=== PATIENT | male | born 1970 | race Two or more races ===

== ENCOUNTER 2019-03-17 09:30 | Emergency (ER) | payer MEDICAID, OTHER ==
[~2019-03-17] VITALS: Ht 172.7 cm; Wt 104.3 kg
[2019-03-17 09:40] VITALS: BP 150/91
[2019-03-17] MEDS ORDERED: METHOCARBAMOL 500 MG TAB PO ONE (10:30)
[2019-03-17] MEDS ORDERED: IBUPROFEN 800 MG TAB PO ONE (10:30)
== END 2019-03-17 11:42 | disposition home or self-care (01) ==
LOC: ER 09:30 → EDBD 09:30 → ER 11:41
DX: M54.5 Low back pain (principal); V49.9XXA Car occupant (driver) (passenger) injured in unspecified traffic accident, initial encounter; Y93.89 Activity, other specified; Y92.89 Other specified places as the place of occurrence of the external cause; Y99.8 Other external cause status
CPT/HCPCS: 72100

== ENCOUNTER 2022-12-07 17:29 | Emergency (ER) | payer MEDICAID, OTHER ==
[~2022-12-07] VITALS: Ht 172.7 cm; Wt 86.0 kg
[2022-12-07 18:57] LABS: Urine Bacteria NONE SEEN /hpf (None Seen); Urine Blood Negative /uL (Negative); Urine Specific Gravity 1.043 (1.001-1.035); Urine WBC 1 /hpf (0 - 3)
[2022-12-07 19:25] LABS: Basophils # (auto) 0 10 ^3/uL (0-0.2); Basophils % (auto) 0.6 % (0.0-2.0); Eosinophils # (auto) 0.1 10 ^3/uL (0-0.8); Eosinophils % (auto) 1.5 % (0.0-7.0); Hematocrit 50.6 % (41.0-53.0); Hemoglobin 17.5 g/dL (13.5-17.5); Lymphocytes # (auto) 2.5 10 ^3/uL (0.4-5.4); Lymphocytes % (auto) 35.3 % (10.0-50.0); Mean Corpuscular Hemoglobin 31.4 pg (28.0-32.0); Mean Corpuscular Hgb Conc. 34.5 g/dL (32.0-36.0); Monocytes # (auto) 0.4 10 ^3/uL (0-1.3); Monocytes % (auto) 5.6 % (0.0-12.0); Neutrophils # (auto) 4.1 10 ^3/uL (1.6-8.6); Nucleated Red Blood Cells % 0.1 %; Red Blood Cells 5.56 10^6/uL (4.5-5.90); Red Cell Distribution Width 13.5 % (11.8-14.3); White Blood Cell 7.2 10^3/uL (4.4-10.8)
[2022-12-07 19:50] LABS: Calcium 8.9 mg/dL (8.5-10.1); Potassium 4.4 mmol/L (3.5-5.1)
[2022-12-07 19:56] LABS: Bilirubin, Total 0.6 mg/dL (0.2-1.0); Total Protein 7.8 g/dL (6.4-8.2)
[2022-12-07] MEDS ORDERED: METF-370 PO (20:59)
[2022-12-07 22:26] VITALS: BP 145/90
== END 2022-12-07 22:26 | disposition home or self-care (01) ==
LOC: ER 17:29
DX: R73.9 Hyperglycemia, unspecified (principal); R82.4 Acetonuria
CPT/HCPCS: 36415; 36600; 80053; 81001; 82805; 83605; 83690; 85025

== ENCOUNTER 2024-11-04 09:33 | Emergency (ER) | payer MEDICAID, OTHER ==
[~2024-11-04] VITALS: Ht 172.7 cm; Wt 78.3 kg
[~2024-11-04 09:33] MED LIST: METF-370 PO
--- NOTE | 2024-11-04 10:27 | DVH ---
EXAM: CT HEAD WITHOUT CONTRAST HISTORY: HEAD INJURY COMPARISON: None TECHNIQUE: Axial images of the head were obtained and reformatted in coronal and sagittal planes. All CT scans at this medical facility are performed using dose modulation techniques as appropriate t o a performed exam including the following: Automated exposure control was utilized; adjustment of th e MA and/or KV according to patient size; and use of iterative reconstruction technique. CT Dose: CTDI volume is 57 mGy. Dose-length product is 10 16 mGy*cm FINDINGS: There is no evidence of acute intracranial hemorrhage, mass, mass effect midline shift. There is no h ydrocephalus or extra-axial fluid collection. Schumacher-white matter differentiation is maintained. The visualized paranasal sinuses and mastoid air cells are clear. There is right anterior frontal sc alp hematoma. The calvarium is intact. IMPRESSION: 1. No acute intracranial process. 2. Right anterior frontal scalp hematoma. HS:Y
--- NOTE | 2024-11-04 10:39 | DVH ---
CLINICAL HISTORY: FALL INJURY COMPARISON: None TECHNIQUE: Axial CT images of the cervical spine were obtained without IV contrast. Coronal and sagit dheeraj reformatted images were obtained. All CT scans at this medical facility are performed using dose modulation techniques as appropriate to a performed exam including the following: Automated exposure control was utilized; adjustment of the MA and/or KV according to patient size; and use of iterative reconstruction technique. CTDIvol = 0.07, 23.47 mGy DLP = 750.44, 3.16 mGy-cm FINDINGS: Bones: Straightening of the normal cervical lordosis. No significant spondylolisthesis. Vertebral bod y heights are maintained. Posterior elements are intact. No acute fracture. Multilevel [id number] te disc space narrowing in the cervical spine with associated endplate sclerosis and endplate spurrin g. Paraspinal soft tissues: Prevertebral and paraspinal soft tissues are unremarkable. Other: No other significant findings. IMPRESSION: 1. No evidence of acute fracture or spondylolisthesis. 2. Straightening of the normal cervical lordosis, may be positional or due to muscle spasm. 3. Degenerative disc disease in the cervical spine as described above.
--- NOTE | 2024-11-04 12:57 | ED.PDOC ---
HPI (NEURO) HPI Comments 54 y.o male with PMHx of DM, presents to the ED for a chief complaint of dizziness associated with a headache x 1 day. Patient reports taking pain medication last night for headache, woke up with no pain but states today while feeding his dog outside, he bent down to get the dog food, became dizzy and fell face forward onto metal fence. Patient presents with 1.3cm laceration to the right side of his forehead with clean edges and no active bleeding. Patient denied any LOC, head pain at this time, nausea, vomiting, chest pain or SOB. Chief Complaint: Dizziness Time Seen by MD: 12:43 Primary Care Provider: NONE Reviewed Notes: Nurses Notes, Medications, Allergies Information Source: Patient Mode of Arrival: Ambulatory Severity: Moderate Dizziness/Weakness Severity: Unable to do activities Headache Severity: Moderate Timing: Days (1) Duration: Since onset Headache Quality: Aching Headache Location: Generalized Onset: At rest Circumstances: Spontaneous Symptoms: Near syncope History of: DM Modifying factors: Nothing Associated Signs and Symptoms: Headache, Other Past Medical History PAST MEDICAL HISTORY: DM, Denies Past Medical History (Other): chronic back pain Surgical History: Denies all surgeries Family History Family History: Reviewed,noncontributory to illness Social History Smoker: Non-Smoker Alcohol: Denies ETOH Use Drugs: Denies Drug Use Lives In: Home Constitutional: denies: chills, diaphoresis, fatigue, fever, malaise, sweats, weakness, others EENTM: denies: blurred vision, double vision, ear bleeding, ear discharge, ear drainage, ear pain, ear ringing, eye pain, eye redness, hearing loss, mouth pain, mouth swelling, nasal discharge, nose bleeding, nose congestion, nose pain, photophobia, tearing, throat pain, throat swelling, voice changes, others Respiratory: denies: cough, hemoptysis, orthopnea, SOB at rest, shortness of breath, SOB with excertion, stridor, wheezing, others Cardiovascular: denies: chest pain, dizzy spells, diaphoresis, Dyspnea on exertion, edema, irregular heart beat, left arm pain, lightheadedness, palpitations, PND, syncope, others Gastrointestinal: denies: abdomen distended, abdominal pain, blood streaked bowels, constipated, diarrhea, dysphagia, difficulty swallowing, hematemesis, melena, nausea, poor appetite, poor fluid intake, rectal bleeding, rectal pain, vomiting, others Genitourinary: denies: burning, dysuria, flank pain, frequency, hematuria, incontinence, penile discharge, penile sore, pain, testicle pain, testicle swelling, urgency, others Neurological: reports: dizziness, headache; denies: fainting, left sided numbness, left sided weakness, numbness, paresthesia, pre-existing deficit, right sided numbness, right sided weakness, seizure, speech problems, tingling, tremors, weakness, others Musculoskeletal: denies: back pain, gout, joint pain, joint swelling, muscle pain, muscle stiffness, neck pain, others Integumetry: reports: laceration; denies: bruises, change in color, change in hair/nails, dryness, lesions, lumps, rash, wounds, others Allergic/Immunocompromised: denies: Difficulty Healing, Frequent Infections, Hives, Itching, others Hematologic/Lymphatic: denies: anemia, blood clots, easy bleeding, easy bruising, swollen glands, others Endocrine: denies: excessive hunger, excessive sweating, excessive thirst, excessive urination, flushing, intolerance to cold, intolerance to heat, unexplained weight gain, unexplained weight loss, others Psychiatric: denies: anxiety, bipolar disorder, depression, hopeless, panic disorder, schizophrenia, sleepless, suicidal, others All Other Systems: Reviewed and Negative Physical Exam General Appearance: No Apparent Distress, Normal HEENT: Normal ENT Inspection, Pharynx Normal, TMs Normal Neck: Full Range of Motion, Non-Tender, Normal, Normal Inspection Respiratory: Chest Non-Tender, Lungs Clear, No Accessory Muscle Use, No Respiratory Distress, Normal Breath Sounds Cardiovascular: No Edema, No JVD, No Murmur, No Gallop, Normal Peripheral Pulses, Regular Rate/Rhythm Breast Exam: Deferred Gastrointestinal: No Organomegaly, Non Tender, No Pulsatile Mass, Normal Bowel Sounds, Soft Genitalia: Deferred Pelvic: Deferred Rectal: Deferred Extremities: No calf tenderness, Normal capillary refill, Normal inspection, Normal range of motion, Non-tender, No pedal edema Musculoskeletal : Apperance: Normal Neurologic: Alert, investment specialist II-XII nml as Tested, No Motor Deficits, Normal Affect, Normal Mood, No Sensory Deficits Cerebellar Function: Normal Reflexes: Normal Skin: Lacerations (1.3cm laceration with clean edges ) Lymphatic: No Adenopathy Was a procedure done? Was a procedure done?: Yes Sedation Sedation?: No Laceration Repair : Location Right-sided forehead Length 1.3 Anesthetic: Nothing Laceration Repair: Dermabond Informed consent obtained: Yes Risks, benefits, and alternati: Yes Differential Diagnosis (SZ) General Weakness: Dehydration, Vertigo: central, Vertigo: peripheral Headache: Cluster, Migraine X-Ray, Labs, Meds, VS Vital Signs Date Time Temp Pulse Resp B/P (MAP) Pulse Ox O2 Delivery O2 Flow Rate FiO2 11/04/24 12:58 97.7 62 16 119/83 (95) 99 97.7 11/04/24 10:36 98.0 72 16 117/87 (97) 97 98.0 11/04/24 09:45 97.8 70 18 125/86 (99) 97 X-Ray, Labs, Meds, VS Comment Imaging: X-rays and CT scans were reviewed and interpreted by this provider, imaging shows no fractures and no pathological disease. Pending radiology review. Laboratory: Labs reviewed and interpreted by this provider. No significant abnormalities noted. Patient has prior medical visits reviewed. Med reconciliation performed Vital signs reviewed Time of 1ST Reevaluation: 12:53 Reevaluation 1ST: Unchanged Patient Education/Counseling: Diagnosis, Treatment, Prognosis, Need For Follow Up (Follow up with the PCP in the next 2-4 days. Return to the emergency department if symptoms worsen) Family Education/Counseling: No Family Present Departure 1 Departure Time of Disposition: 13:01 Impression: Primary Impression: Closed head injury Qualified Codes: S09.90XA - Unspecified injury of head, initial encounter Additional Impressions: Forehead laceration Qualified Codes: S01.81XA - Laceration without foreign body of other part of head, initial encounter Vertigo Disposition: 01 HOME / SELF CARE / HOMELESS Condition: Fair e-Prescriptions Meclizine HCl (Meclizine 25) 25 Mg Tab 25 MG PO TID PRN, #40 TAB Prov: JOCE SALAZAR 11/04/24 Discharged With: Self Critical Care Note Critical Care Time?: No Stability Stability form required: No I personally scribed for JOCE SALAZAR ([facility]) on 1/13/25 at 12:57. Electronically submitted by Deneen Menjivar ([facility]). JOCE SALAZAR [facility] Nov 04, 2024 12:57
[2024-11-04 12:58] VITALS: BP 119/83; TEMP 97.7
[2024-11-04 12:59] VITALS: PULSE 62; RESP 16; O2SAT 98
[2024-11-04] MEDS ORDERED: MECL1TAB42 PO (13:02)
--- NOTE | 2024-11-06 13:41 | ECG ---
[facility] Test Date: 2024-11-04 Test Time: 09:52:42 Pat Name: LAKSHMI MENDENHALL Department: ER Room: Gender: M Fringe Maker: [facility] : 1970 Requested By: JOCE SALAZAR Order Number: [id number] Reading MD: Sotero Nunez Measurements Intervals [place] Rate: 71 P: 7 MI: 177 QRS: -55 QRSD: 108 T: 25 QT: 387 QTc: 421 Interpretive Statements Sinus rhythm Incomplete RBBB and LAFB Abnormal R-wave progression, early transition Minimal ST elevation, anterior leads Baseline wander in lead(s) V2 Electronically Signed On 11-10-2024 15:00:12 PST by Sotero Nnuez Please click the below link to view image of tracing.
== END 2024-11-04 13:11 | disposition home or self-care (01) ==
LOC: ER 09:33
DX: S01.81XA Laceration without foreign body of other part of head, initial encounter (principal); R42 Dizziness and giddiness; E11.9 Type 2 diabetes mellitus without complications; W18.39XA Other fall on same level, initial encounter; Y93.89 Activity, other specified; Y92.89 Other specified places as the place of occurrence of the external cause; Y99.8 Other external cause status
CPT/HCPCS: 12011; 70450; 72125; 93005